=== PATIENT | female | born 1945 | race Caucasian/White ===

== ENCOUNTER 2020-06-17 13:40 | Outpatient (CLI) | payer MEDICARE ==
[2020-06-18 04:20] LABS: SARS-CoV-2 PCR by NAA Not Detected (NotDetected)
== END 2020-06-17 13:41 | disposition home or self-care (01) ==
LOC: CSHLAB 13:40
PROVIDERS: ATTEND Internal Medicine Gastroenterology
DX: Z20.822 Contact with and (suspected) exposure to COVID-19 (principal); Z12.11 Encounter for screening for malignant neoplasm of colon
CPT/HCPCS: 87635; U0003; U0005

== ENCOUNTER 2020-06-20 06:38 | Day surgery (SDC) | payer MEDICARE, OTHER ==
[2020-06-18 15:06] VITALS: BMI 33.3
[2020-06-20] MEDS ORDERED: Lidocaine 1% MPF 2 ML VIAL ONE (07:00)
[2020-06-20] MEDS ORDERED: PROPOFOL 40 ML ONE (08:58)
[2020-06-20] MEDS ORDERED: Lidocaine 1% PF 5 ML VIAL ONE (08:59)
== END 2020-06-20 10:35 | disposition home or self-care (01) ==
LOC: CSHSDC 06:38
PROVIDERS: ATTEND Internal Medicine Gastroenterology
DX: Z12.11 Encounter for screening for malignant neoplasm of colon (principal); K63.5 Polyp of colon; K57.30 Diverticulosis of large intestine without perforation or abscess without bleeding; K64.9 Unspecified hemorrhoids; I10 Essential (primary) hypertension; I48.91 Unspecified atrial fibrillation; Z90.710 Acquired absence of both cervix and uterus
CPT/HCPCS: 88305; J2704

== ENCOUNTER 2022-05-27 14:05 | Outpatient (CLI) | payer MEDICARE, OTHER | END 2022-05-27 14:06 | disposition home or self-care (01) | LOC: CSHRAD 14:05 | PROVIDERS: ATTEND Family Medicine | DX: R05.9 Cough, unspecified (principal) | CPT/HCPCS: 71046 ==

== ENCOUNTER 2023-10-06 14:04 | Outpatient (CLI) | payer MEDICARE, OTHER | END 2023-10-06 14:05 | disposition home or self-care (01) | LOC: CSHMAMMO 14:04 | PROVIDERS: ATTEND Internal Medicine Endocrinology, Diabetes & Metabolism | DX: M85.89 Other specified disorders of bone density and structure, multiple sites (principal); E83.52 Hypercalcemia | CPT/HCPCS: 77080 ==

== ENCOUNTER 2024-04-28 10:28 | Outpatient (CLI) | payer MEDICARE, OTHER | END 2024-04-28 10:29 | disposition home or self-care (01) | LOC: CSHULT 10:28 | PROVIDERS: ATTEND Family Medicine | DX: R17 Unspecified jaundice (principal) | CPT/HCPCS: 76700 ==

== ENCOUNTER 2025-01-02 14:28 | Outpatient (CLI) | payer MEDICARE, OTHER | END 2025-01-02 14:29 | disposition home or self-care (01) | LOC: CJX 14:28 | PROVIDERS: ATTEND Specialist | DX: M19.012 Primary osteoarthritis, left shoulder (principal); M75.112 Incomplete rotator cuff tear or rupture of left shoulder, not specified as traumatic; M25.412 Effusion, left shoulder; M67.912 Unspecified disorder of synovium and tendon, left shoulder ==

== ENCOUNTER 2025-03-27 09:36 | Outpatient (CLI) | payer MEDICARE, OTHER | END 2025-03-27 09:37 | disposition home or self-care (01) | LOC: CSHCT 09:36 | PROVIDERS: ATTEND Family Medicine | DX: E21.3 Hyperparathyroidism, unspecified (principal); E27.8 Other specified disorders of adrenal gland | CPT/HCPCS: 71260; 74177 ==